=== PATIENT | male | born 1925 | race Caucasian/White ===

== ENCOUNTER 2016-09-21 10:50 | Emergency (ER) | payer MEDICARE, OTHER ==
[2016-09-21] MEDS ORDERED: Sodium Chloride 0.9% 10 ML Syringe FLUSH PRN (10:58)
--- NOTE | 2016-09-21 11:04 | EDM.PDOC ---
ED HPI GENERAL MEDICAL PROBLEM - General Stated Complaint: MEDICAL VIA TRI Time Seen by Provider: 09/21/16 10:57 Source of Information: Reports: Patient, Old Records, RN Notes Reviewed History Limitations: Reports: No Limitations - History of Present Illness INITIAL COMMENTS - FREE TEXT/NARRATIVE: 89-year-old gentleman presents emergency department today via EMS services for a complaint of chest pain, chest pain started early this morning around 9 AM initially related pain 8 out of 10 has received aspirin, nitroglycerin, morphine with some relief history pain now 6 out of 10. He describes the pain is probably left-sided chest with radiation down into the left arm none in the neck he does not have any shortness of breath no diaphoresis no nausea. Recently had a non-STEMI 2 weeks ago with stent placement 2 [facility] Chest Pain Score (Numeric/FACES): 7 - Related Data Allergies Allergy/AdvReac Type Severity Reaction Status Date / Time cephalexin monohydrate Allergy Rash Verified 04/01/16 17:11 [From Keflex] cetirizine HCl [From Zyrtec] Allergy Cannot Verified 04/01/16 17:11 Remember Sulfa (Sulfonamide Allergy Rash Verified 04/01/16 17:11 Antibiotics) terazosin HCl [From Hytrin] Allergy Swelling Verified 04/01/16 17:11 venom-honey bee Allergy Hives Verified 04/01/16 17:11 [bee venom (honey bee)] Home Meds: Home Meds Aspirin [Sabino Chewable Aspirin] 81 mg PO DAILY 01/12/13 [History] Hydrocodone/Acetaminophen [Lortab 5-500] 1 tab PO Q4H PRN 01/12/13 [History] Lansoprazole [Prevacid] 30 mg PO DAILY 01/12/13 [History] Levothyroxine Sodium [Synthroid] 100 mcg PO DAILY 01/12/13 [History] Losartan [Cozaar] 50 mg PO DAILY 01/12/13 [History] Nitroglycerin [Nitrostat] 0.4 mg SL ASDIRECTED PRN 01/12/13 [History] Isosorbide Mononitrate [Isosorbide Mononitrate ER] 30 mg PO DAILY 01/15/15 [ History] Tamsulosin [Flomax] 0.4 mg PO DAILY 03/10/15 [History] Clopidogrel [Plavix] 75 mg PO DAILY 08/15/15 [History] Atenolol [Tenormin] 25 mg PO DAILY #30 tablet 04/04/16 [Rx] Ciprofloxacin HCl [Cipro] 250 mg PO BID 09/21/16 [History] Losartan [Cozaar] 50 mg PO DAILY 09/21/16 [History] Past Medical History HEENT History: Reports: Hard of Hearing, Impaired Vision Cardiovascular History: Reports: Angina, CAD, Hypertension, [place], Stents Other Cardiovascular History: stent mar 2015 Other Gastrointestinal History: hernia Genitourinary History: Reports: Other (See Below) Other Genitourinary History: "some prostate problems" Neurological History: Reports: TIA Endocrine/Metabolic History: Reports: Hypothyroidism - Past Surgical History Cardiovascular Surgical History: Reports: Coronary Artery Stent, Other (See Below) Musculoskeletal Surgical History: Reports: Other (See Below) Social & Family History - Family History Family Medical History: Noncontributory Cardiac: Reports: CAD - Tobacco Use Smoking Status *Q: Never Smoker Second Hand Smoke Exposure: No - Caffeine Use Caffeine Use: Reports: Coffee, Tea - Alcohol Use Days Per Week of Alcohol Use: 0 - Recreational Drug Use Recreational Drug Use: No ED ROS GENERAL - Review of Systems Review Of Systems: See Below Constitutional: Denies: Fever, Diaphoresis HEENT: Reports: No Symptoms Respiratory: Denies: Shortness of Breath, Cough, Sputum Cardiovascular: Reports: Chest Pain. Denies: Palpitations GI/Abdominal: Reports: No Symptoms : Reports: No Symptoms Musculoskeletal: Reports: No Symptoms Skin: Reports: No Symptoms Neurological: Reports: No Symptoms Psychiatric: Reports: No Symptoms ED EXAM, GENERAL - Physical Exam Exam: See Below Free Text/Narrative:: General: Elderly male, moderate discomfort secondary to pain, alert HEENT: head is atraumatic normocephalic, eyes pupils equal round reactive to light, sclera clear no conjunctivitis appreciated. Ears tympanic membranes clear and smith landmarks and light reflex are present bilaterally canals are clear. Nose no septal deviation, nares are clear, no blood present. Mouth mucosa is moist and pink no erythema or exudate noted in soft palate, tongue is midline uvula is midline, dentition is intact. Neck: Supple no thyromegaly no tracheal deviation. Nodes: Cervical nodes subclavicular nodes nontender no palpable lymphadenopathy noted. Lungs: clear to auscultation bilaterally with symmetrical respirations, no adventitious noise appreciated. CV: Regular rate and rhythm S1 and S2 appreciated no murmurs rubs or gallops noted. Abdomen: Soft, nontender, no palpable masses or organomegaly appreciated, no distention no guarding bowel sounds are present, . Neuro: Cranial nerves II through XII grossly intact Skin: Warm and dry, intact Extremities: No lower extremity edema appreciated, Course - Vital Signs Last Recorded V/S: Last Vital Signs Temp 96.3 F 09/21/16 11:21 Pulse 79 09/21/16 12:35 Resp 16 09/21/16 12:35 BP 171/95 H 09/21/16 12:35 Pulse Ox 96 09/21/16 12:35 - Orders/Labs/Meds Orders: Active Orders 24 hr Category Date Time Status Cardiac Monitoring [RC] .As Directed Care 09/21/16 10:58 Active EKG Documentation Completion [RC] ASDIRECTED Care 09/21/16 10:58 Active Heparin Sodium/D5W [Heparin 25,000 Units in D5W 500 ML] Med 09/21/16 12:15 Active 25,000 units in 500 ml IV TITRATE Nitroglycerin/D5W [Nitroglycerin 25 MG/D5W 250 ML] Med 09/21/16 12:15 Active 25 mg in 250 ml IV TITRATE Sodium Chloride 0.9% [Saline Flush] Med 09/21/16 10:58 Active 10 ml FLUSH ASDIRECTED PRN Saline Lock Insert [OM.PC] Stat Oth 09/21/16 10:58 Ordered EKG 12 Lead [EK] Stat Ther 09/21/16 10:58 Ordered Medication Orders Heparin Sodium/Dextrose (Heparin 25,000 Units In D5w 500 Ml) 25,000 units in 500 mls @ 81.647 mls/hr IV TITRATE DARRION; 60 UNITS/KG/HR PRN Reason: Protocol Last Admin: 09/21/16 12:24 Dose: 60 units/kg/hr, 81.647 mls/hr Nitroglycerin/Dextrose (Nitroglycerin 25 Mg/D5w 250 Ml) 25 mg in 250 mls @ 6 mls/hr IV TITRATE DARRION; 10 MCG/MIN PRN Reason: Protocol Last Titration: 09/21/16 13:02 Dose: 20 mcg/min, 12 mls/hr Titration: 09/21/16 12:52 Dose: 15 mcg/min, 9 mls/hr Admin: 09/21/16 12:29 Dose: 10 mcg/min, 6 mls/hr Sodium Chloride (Saline Flush) 10 ml FLUSH ASDIRECTED PRN PRN Reason: Keep Vein Open Last Admin: 09/21/16 11:34 Dose: 10 ml Labs: Laboratory Tests 09/21/16 09/21/16 09/21/16 Range/Units 11:10 11:10 11:38 WBC 14.2 H (4.5-11.0) K/uL RBC 3.93 L (4.30-5.90) M/uL Hgb 12.0 (12.0-15.0) g/dL Hct 35.4 L (40.0-54.0) % MCV 90 (80-98) fL MCH 31 (27-31) pg MCHC 34 (32-36) % Plt Count 326 (150-400) K/uL Neut % (Auto) 74 H (36-66) % Lymph % (Auto) 14 L (24-44) % [place] % (Auto) 11 H (2-6) % Eos % (Auto) 1 L (2-4) % Baso % (Auto) 0 (0-1) % Sodium 136 L (140-148) mmol/L Potassium 4.3 (3.6-5.2) mmol/L Chloride 104 (100-108) mmol/L Carbon Dioxide 19 L (21-32) mmol/L Anion Gap 17.3 H (5.0-14.0) mmol/L BUN 38 H D (7-18) mg/dL Creatinine 1.9 H (0.8-1.3) mg/dL Est Cr Clr Drug Dosing 25.37 mL/min Estimated GFR (MDRD) 34 L (>60) Glucose 156 H (74-106) mg/dL Calcium 8.2 L (8.5-10.1) mg/dL Total Bilirubin 0.5 (0.2-1.0) mg/dL AST 22 (15-37) U/L ALT 27 (12-78) U/L Alkaline Phosphatase 45 L (46-116) U/L CK-MB (CK-2) 2.9 (0-3.6) mg/mL Troponin I 0.124 H* (0.000-0.056) ng/mL C-Reactive Protein 10.26 H (0.0-0.3) mg/dL Total Protein 7.3 (6.4-8.2) g/dL Albumin 2.7 L (3.4-5.0) g/dL Globulin 4.6 H (2.3-3.5) g/dL Albumin/Globulin Ratio 0.6 L (1.2-2.2) Meds: Medications Generic Name Dose Route Start Last Admin Trade Name Radhika PRN Reason Stop Dose Admin Heparin Sodium/Dextrose 25,000 units in 500 mls @ 81.647 mls/hr 09/21/16 12: 15 09/21/16 12:24 Heparin 25,000 Units In D5w 500 Ml IV 60 units/kg/hr TITRATE DARRION 81.647 mls/hr Protocol Administration 60 UNITS/KG/HR Nitroglycerin/Dextrose 25 mg in 250 mls @ 6 mls/hr 09/21/16 12:15 09/21/16 13 :02 Nitroglycerin 25 Mg/D5w 250 Ml IV 20 mcg/min TITRATE DARRION 12 mls/hr Protocol Titration 10 MCG/MIN Sodium Chloride 10 ml 09/21/16 10:58 09/21/16 11:34 Saline Flush FLUSH 10 ml ASDIRECTED PRN Administration Keep Vein Open Discontinued Medications Generic Name Dose Route Start Last Admin Trade Name Radhika PRN Reason Stop Dose Admin Clopidogrel Bisulfate 600 mg 09/21/16 11:45 09/21/16 12:01 Plavix PO 09/21/16 11:46 600 mg ONETIME ONE Administration Fentanyl 25 mcg 09/21/16 12:28 09/21/16 12:33 Sublimaze IVPUSH 09/21/16 12:29 25 mcg ONETIME ONE Administration Fentanyl 50 mcg 09/21/16 12:50 09/21/16 12:55 Sublimaze IVPUSH 09/21/16 12:51 50 mcg ONETIME ONE Administration Heparin Sodium (Porcine) 4,000 units 09/21/16 11:45 09/21/16 12:01 Heparin Sodium IVPUSH 09/21/16 11:46 4,000 units ONETIME ONE Administration Morphine Sulfate 2 mg 09/21/16 11:31 09/21/16 11:33 Morphine IVPUSH 09/21/16 11:32 2 mg ONETIME ONE Administration Morphine Sulfate 4 mg 09/21/16 12:06 09/21/16 12:12 Morphine IVPUSH 09/21/16 12:07 4 mg ONETIME ONE Administration Departure - Departure Time of Disposition: 13:17 Disposition: DC/Tfer to Acute Hospital 02 Reason for Transfer *Q: Other Condition: Fair Clinical Impression: Acute coronary syndrome - My Orders Last 24 Hours: My Active Orders 09/21/16 10:58 Cardiac Monitoring [RC] .As Directed EKG Documentation Completion [RC] ASDIRECTED Sodium Chloride 0.9% [Saline Flush] 10 ml FLUSH ASDIRECTED PRN Saline Lock Insert [OM.PC] Stat EKG 12 Lead [EK] Stat 09/21/16 12:15 Heparin Sodium/D5W [Heparin 25,000 Units in D5W 500 ML] 25,000 units in 500 ml IV TITRATE Nitroglycerin/D5W [Nitroglycerin 25 MG/D5W 250 ML] 25 mg in 250 ml IV TITRATE - Assessment/Plan Last 24 Hours: My Active Orders 09/21/16 10:58 Cardiac Monitoring [RC] .As Directed EKG Documentation Completion [RC] ASDIRECTED Sodium Chloride 0.9% [Saline Flush] 10 ml FLUSH ASDIRECTED PRN Saline Lock Insert [OM.PC] Stat EKG 12 Lead [EK] Stat 09/21/16 12:15 Heparin Sodium/D5W [Heparin 25,000 Units in D5W 500 ML] 25,000 units in 500 ml IV TITRATE Nitroglycerin/D5W [Nitroglycerin 25 MG/D5W 250 ML] 25 mg in 250 ml IV TITRATE Plan: Assessment Acuity = acute Site and laterality = acute coronary syndrome questionable non-ST elevation myocardial infarction complicated patient with known history of coronary artery disease, hypertension and dyslipidemia Etiology = probably related to coronary artery disease Manifestations = ongoing chest pain Location of injury = Home Lab values = WBC elevated at 14.2 consistent leukocytosis, sodium low at 136 consistent hyponatremia cranny and elevated at 1.9 consistent with chronic renal failure stage GIIIB troponin elevated 0.124 unclear significance CRP elevated at 10.2 unclear significance albumin low at 2.7 consistent hypoalbuminemia Plan Called and discussed the case with Dr. Caldwell hospitalist electrical controls technician at [facility] also discussed case with cardiology on-call, kindly accepted the patient recommend starting nitro drip and heparin drip he also received additional 75 g of fentanyl which did provide some pain relief pain still remains about a 6 out of 10, he will be transported via EMS ground as his vital signs remained stable Patient was in agreement with the plan all questions were answered, This note was dictated using [employer] voice recognition software please call with any questions.
--- NOTE | 2016-09-21 11:23 | CR ---
Chest 1V Frontal FINDINGS: The heart and vascular structures are normal in appearance. No infiltrates or effusions ar e demonstrated. The skeletal structures are unremarkable. IMPRESSION: Negative exam.
[2016-09-21] MEDS ORDERED: Morphine 2 MG/ML Syringe IVPUSH ONE (11:31)
[2016-09-21] MEDS ORDERED: Clopidogrel 75 MG Tab PO ONE (11:45)
[2016-09-21] MEDS ORDERED: Heparin Sodium 5,000 Units/ML Vial IVPUSH ONE (11:45)
[2016-09-21] MEDS ORDERED: Morphine 4 MG/ML Syringe IVPUSH ONE (12:06)
[2016-09-21] MEDS ORDERED: Nitroglycerin/D5W 25 MG/250 ML BOTTLE IV SCH (12:15)
[2016-09-21] MEDS ORDERED: Heparin Sodium/D5W 25,000 UNITS/500 ML BAG IV SCH (12:15)
[2016-09-21] MEDS ORDERED: fentaNYL 100 MCG/2 ML SDV IVPUSH ONE ×2 (12:28→12:50)
[2016-09-21 13:31] VITALS: BP 166/92
== END 2016-09-21 13:56 ==
LOC: JP.ED 10:50
DX: I24.9 Acute ischemic heart disease, unspecified (principal); I10 Essential (primary) hypertension; I25.10 Atherosclerotic heart disease of native coronary artery without angina pectoris; I25.2 Old myocardial infarction; E03.9 Hypothyroidism, unspecified; Z95.5 Presence of coronary angioplasty implant and graft; Z86.73 Personal history of transient ischemic attack (TIA), and cerebral infarction without residual deficits; Z79.82 Long term (current) use of aspirin; Z79.899 Other long term (current) drug therapy; Z88.1 Allergy status to other antibiotic agents; Z88.2 Allergy status to sulfonamides; Z91.030 Bee allergy status; Z88.8 Allergy status to other drugs, medicaments and biological substances
CPT/HCPCS: 36415; 71010; 80053; 82553; 84484; 85025; 86140; 93005; 96365; 96375; 96376; 99285; A9270; J1644; J2270; J3010; J7050; 93010

== ENCOUNTER 2016-11-05 08:59 | Emergency (ER) | payer MEDICARE, OTHER ==
[2016-11-05 09:06] VITALS: BP 116/78
--- NOTE | 2016-11-05 09:35 | EDM.PDOC ---
ED HPI GENERAL MEDICAL PROBLEM - General Chief Complaint: General Stated Complaint: VIA AMBULANCE Time Seen by Provider: 11/05/16 09:20 Source of Information: Reports: Patient History Limitations: Reports: No Limitations - History of Present Illness INITIAL COMMENTS - FREE TEXT/NARRATIVE: 89-year-old male brought in by ambulance because of progressive weakness, he has ongoing urinary incontinence problems and actually has a urologist appointment today. He can barely get around over the past 1-2 days with a walker despite having no pain or shortness of breath. He denies any fevers or chills. He was brought in by ambulance because of weakness as a chief complaint. No significant falls or injuries. Location: Reports: Generalized Severity: Moderate Associated Symptoms: Reports: Malaise, Weakness, Other (Denies any pain). Denies: Fever/Chills, Nausea/Vomiting, Shortness of Breath - Related Data Allergies Allergy/AdvReac Type Severity Reaction Status Date / Time cephalexin monohydrate Allergy Rash Verified 04/01/16 17:11 [From Keflex] cetirizine HCl [From Zyrtec] Allergy Cannot Verified 04/01/16 17:11 Remember Sulfa (Sulfonamide Allergy Rash Verified 04/01/16 17:11 Antibiotics) terazosin HCl [From Hytrin] Allergy Swelling Verified 04/01/16 17:11 venom-honey bee Allergy Hives Verified 04/01/16 17:11 [bee venom (honey bee)] Home Meds: Home Meds Aspirin [Sabino Chewable Aspirin] 81 mg PO DAILY 01/12/13 [History] Levothyroxine Sodium [Synthroid] 100 mcg PO DAILY 01/12/13 [History] Nitroglycerin [Nitrostat] 0.4 mg SL ASDIRECTED PRN 01/12/13 [History] Isosorbide Mononitrate [Isosorbide Mononitrate ER] 30 mg PO DAILY 01/15/15 [ History] Tamsulosin [Flomax] 0.4 mg PO DAILY 03/10/15 [History] Acetaminophen/HYDROcodone [[place] 325-5 MG] 1 tab PO Q4H PRN 11/05/16 [History] Lansoprazole [Prevacid] 30 mg PO DAILY 11/05/16 [History] Metoprolol Succinate [Toprol Xl] 25 mg PO DAILY 11/05/16 [History] Multivit-Min/Iron Fum/Folic AC [Hdocj-Grmmuwy-Hpjobnpp Tablet] 1 tab PO DAILY [History] Ticagrelor [Brilinta] 90 mg PO BID 11/05/16 [History] Past Medical History HEENT History: Reports: Hard of Hearing, Impaired Vision Cardiovascular History: Reports: Angina, CAD, Hypertension, [place], Stents Other Cardiovascular History: stent mar 2015 Other Gastrointestinal History: hernia Genitourinary History: Reports: Other (See Below) Other Genitourinary History: "some prostate problems" Neurological History: Reports: TIA Endocrine/Metabolic History: Reports: Hypothyroidism - Past Surgical History Cardiovascular Surgical History: Reports: Coronary Artery Stent, Other (See Below) Social & Family History - Family History Family Medical History: Noncontributory Cardiac: Reports: CAD - Tobacco Use Smoking Status *Q: Unknown Ever Smoked Second Hand Smoke Exposure: No - Caffeine Use Caffeine Use: Reports: Coffee - Alcohol Use Days Per Week of Alcohol Use: 0 - Recreational Drug Use Recreational Drug Use: No ED ROS GENERAL - Review of Systems Review Of Systems: See Below Constitutional: Reports: Malaise, Weakness. Denies: Fever, Chills HEENT: Reports: No Symptoms Respiratory: Denies: Shortness of Breath, Cough Cardiovascular: Denies: Chest Pain Endocrine: Reports: Fatigue GI/Abdominal: Denies: Abdominal Pain, Nausea, Vomiting : Reports: Incontinence. Denies: Dysuria, Flank Pain Skin: Reports: Pallor Neurological: Reports: Weakness Psychiatric: Reports: No Symptoms ED EXAM, GENERAL - Physical Exam Exam: See Below Exam Limited By: No Limitations General Appearance: Alert, No Apparent Distress, Other (Patient appears frail, weak) Eye Exam: Bilateral Eye: EOMI, Other (Conjunctivae appear pale) Respiratory/Chest: No Respiratory Distress, Lungs Clear GI/Abdominal: Soft, Non-Tender (Male) Exam: Other (Patient has some discomfort with palpation over the lower abdomen but there is no definite urine retention or distention). No: Suprapubic Fullness Neurological: Alert, Oriented Psychiatric: Normal Affect, Normal Mood Skin Exam: Warm, Dry Course - Vital Signs Last Recorded V/S: Last Vital Signs Temp 98.1 F 11/05/16 09:06 Pulse 106 H 11/05/16 09:06 Resp 16 11/05/16 09:06 BP 116/78 11/05/16 09:06 Pulse Ox 99 11/05/16 09:06 - Orders/Labs/Meds Orders: Active Orders 24 hr Category Date Time Status Chau Catheter Insertion [Insert Urinary Catheter] [OM. Care 11/05/16 11:00 Ordered PC] Q24H Urinary Catheter Assessment [RC] ASDIRECTED Care 11/05/16 10:53 Active CULTURE URINE [RM] Stat Lab 11/05/16 10:10 Received Labs: Laboratory Tests 11/05/16 11/05/16 11/05/16 Range/Units 09:50 09:50 09:53 WBC 9.4 (4.5-11.0) K/uL RBC 3.98 L (4.30-5.90) M/uL Hgb 11.5 L (12.0-15.0) g/dL Hct 35.2 L (40.0-54.0) % MCV 88 (80-98) fL MCH 29 (27-31) pg MCHC 33 (32-36) % Plt Count 324 (150-400) K/uL Neut % (Auto) 71 H (36-66) % Lymph % (Auto) 13 L (24-44) % [place] % (Auto) 16 H (2-6) % Eos % (Auto) 0 L (2-4) % Baso % (Auto) 0 (0-1) % Sodium 143 (140-148) mmol/L Potassium 4.2 (3.6-5.2) mmol/L Chloride 112 H (100-108) mmol/L Carbon Dioxide 20 L (21-32) mmol/L Anion Gap 15.2 H (5.0-14.0) mmol/L BUN 44 H (7-18) mg/dL Creatinine 1.8 H (0.8-1.3) mg/dL Est Cr Clr Drug Dosing 26.77 mL/min Estimated GFR (MDRD) 36 L (>60) Glucose 132 H (74-106) mg/dL Calcium 7.9 L (8.5-10.1) mg/dL Urine Color Yellow Urine Appearance Turbid Urine pH 9.0 H (4.5-8.0) Ur Specific [place] 1.015 (1.008-1.030) Urine Protein 100 H (NEGATIVE) mg/dL Urine Glucose (UA) Normal (NEGATIVE) mg/dL Urine Ketones Negative (NEGATIVE) mg/dL Urine Occult Blood Large (NEGATIVE) Urine Nitrite Negative (NEGAITVE) Urine Bilirubin Negative (NEGATIVE) Urine Urobilinogen Normal (NORMAL) mg/dL Ur Leukocyte Esterase Large (NEGATIVE) Urine RBC Semi-packed H (0-5) Urine WBC Packed H (0-5) Ur Epithelial Cells Rare Amorphous Sediment Not seen Urine Bacteria Many Urine Mucus Not seen Meds: Medications Discontinued Medications Generic Name Dose Route Start Last Admin Trade Name Radhika PRN Reason Stop Dose Admin Levofloxacin/Dextrose 750 mg/ 150 mls @ 100 mls/hr 11/05/16 10:19 11/05/16 10 :23 Premix IV 11/05/16 11:48 100 mls/hr ONETIME ONE Administration Sodium Chloride 500 mls @ 1,000 mls/hr 11/05/16 10:30 11/05/16 10:29 Normal Saline IV 1,000 mls/hr ASDIRECTED DARRION Administration Lidocaine HCl Confirm 11/05/16 10:43 11/05/16 11:01 Xylocaine 2% Jelly Administered 11/05/16 10:44 Not Given Dose 10 ml .ROUTE .STK-MED ONE Lidocaine HCl 10 ml 11/05/16 10:59 11/05/16 11:01 Xylocaine 2% Jelly MUCMEM 11/05/16 11:00 10 ml ONETIME ONE Administration - Re-Assessments/Exams Free Text/Narrative Re-Assessment/Exam: 11/05/16 11:04 UA was obtained by miniature catheterization and was cloudy and very malodorous. CBC revealed a normal white count and stable hemoglobin. Creatinine was 1.8 which is near his chronic baseline. On catheterization he also had 300 mL of retained urine. I discussed his condition with the urology department who he has an appointment with later today and they recommended an indwelling catheterization, an IV dose of Levaquin and he was then transferred over to the clinic for his appointment. A urine culture was initiated. Departure - Departure Time of Disposition: 12:26 Disposition: Home, Self-Care 01 Condition: Fair Clinical Impression: Bladder outflow obstruction UTI (urinary tract infection) Qualifiers: Urinary tract infection type: acute cystitis Hematuria presence: without hematuria Qualified Code(s): N30.00 - Acute cystitis without hematuria - Discharge Information Instructions: Urinary Tract Infection, Adult Referrals: PCP,None [Primary Care Provider] - Forms: ED Department Discharge Care Plan Goals: Recheck with urology at the clinic as scheduled. Further instructions per urology. Take antibiotic daily as directed starting tomorrow, November 06. - My Orders Last 24 Hours: My Active Orders 11/05/16 10:10 CULTURE URINE [RM] Stat 11/05/16 10:53 Urinary Catheter Assessment [RC] ASDIRECTED 11/05/16 11:00 Chau Catheter Insertion [Insert Urinary Catheter] [OM.PC] Q24H - Assessment/Plan Last 24 Hours: My Active Orders 11/05/16 10:10 CULTURE URINE [RM] Stat 11/05/16 10:53 Urinary Catheter Assessment [RC] ASDIRECTED 11/05/16 11:00 Chau Catheter Insertion [Insert Urinary Catheter] [OM.PC] Q24H
[2016-11-05] MEDS ORDERED: Levofloxacin/Dextrose 5%-Water 750 MG in Premix Bag 1 BAG IV ONE (10:19)
[2016-11-05] MEDS ORDERED: Sodium Chloride 0.9% 500 ML IV SCH (10:30)
[2016-11-05] MEDS ORDERED: Lidocaine 2% Jelly 10 ML Urojet ONE (10:43)
[2016-11-05] MEDS ORDERED: Lidocaine 2% Jelly 10 ML Urojet MUCMEM ONE (10:59)
== END 2016-11-05 12:26 | disposition home or self-care (01) ==
LOC: JP.ED 08:59
DX: N32.0 Bladder-neck obstruction (principal); N30.00 Acute cystitis without hematuria; I25.10 Atherosclerotic heart disease of native coronary artery without angina pectoris; I25.2 Old myocardial infarction; I10 Essential (primary) hypertension; E03.9 Hypothyroidism, unspecified; Z95.5 Presence of coronary angioplasty implant and graft; Z79.82 Long term (current) use of aspirin; Z79.899 Other long term (current) drug therapy; Z88.2 Allergy status to sulfonamides; Z91.030 Bee allergy status; Z88.1 Allergy status to other antibiotic agents; Z88.8 Allergy status to other drugs, medicaments and biological substances
CPT/HCPCS: 36415; 51702; 80048; 81001; 85025; 87086; 87088; 87186; 96365; 96366; 99284; 99285; J1956; J7040